=== PATIENT | female | born 1970 | race Caucasian/White ===

== ENCOUNTER 2024-11-09 20:03 | Emergency (ER) | payer OTHER, SELFPAY ==
[2024-11-09] VITALS (13 sets, daily range): BP systolic 100–134; BP diastolic 54–109; BMI 24.9
[2024-11-09] MEDS: DECADRON 20 MG IV (20:21)
[2024-11-09] MEDS: PEPCID 20 MG IV (20:25)
[2024-11-09] MEDS: NSS 1000 IV (22:15)
--- NOTE | 2024-11-09 23:15 | ED.GENMED ---
History of Present Illness
General
Chief Complaint: Allergic Reaction
Source: patient and spouse
Exam Limitations: none
Time Seen by Provider: 11/09/24 20:10
History of Present Illness
History of Present Illness:
54-year-old female who presents after she was walking outside with her and felt like she was being stung. She then became red all over and itchy. She went home to get a shower and had a near syncopal event. EMS found her to be hypotensive
and red. They gave subcu epinephrine and 50 of Benadryl. Patient on my assessment feels shaky and skin feels tingling. states about an hour and a half prior she did not trip but she eats out a lot. She denies any other new exposures.
She is not sure if she was stung by anything in particular. states that they were walking and somebody was mowing the lawn and he sort of walked through a cloud of dust/dirt/pollen. No chest pain. No tongue swelling. No lip swelling.
Patient did feel like she could not breathe at home
Past History
Past History
ED Past Medical History: None
ED Past Surgical History:
Phy Exam
Physical Exam
Physical Exam:
CONSTITUTIONAL Patient alert and oriented to person, place and time. Well-appearing. Vital signs reviewed.
HEAD atraumatic, normocephalic.
EYES eyelids normal to inspection, Extraocular muscles intact, Conjunctiva normal, Sclera normal.
ENT tongue normal, oropharynx normal, lips normal. No stridor
NECK normal range of motion, Trachea midline, no jugular venous distention.
RESPIRATORY CHEST No respiratory distress noted, Chest expansion equal, Bilateral breath sounds clear.
CARDIOVASCULAR regular rate and rhythm, Heart sounds normal.
ABDOMEN abdomen nontender, Bowel sounds normal. No distention.
BACK normal inspection, no obvious deformities
UPPER EXTREMITY range of motion normal, Motor strength normal, no cyanosis, no edema.
LOWER EXTREMITY range of motion normal, Motor strength normal, no cyanosis, no edema.
NEURO Speech normal, No focal motor deficits, Neri coma scale 15, Memory normal, Cranial Nerves intact to screening exam.
SKIN diffuse redness to the skin across the whole body with hives noted on her extremities
Course
Orders/Labs/Results
Orders:
Orders
11/09/24 20:08
Dexamethasone Sod Phosphate [Decadron] 20 mg .ROUTE .STK-MED ONE
11/09/24 20:15
Dexamethasone Sod Phosphate [Decadron] 20 mg IV NOW STA
Famotidine [Pepcid] 20 mg IV NOW STA
11/09/24 22:15
0.9% Sodium Chloride 1000 ml [Nss] 1,000 ml IV BOLUS
Vital Signs
Initial and Last Documented VS:
Initial Vital Signs
Pulse Ox
100
11/09/24 20:08
Last Documented Vital Signs
Temp Pulse Resp BP Pulse Ox
97.6 F 80 16 100/66 98
11/09/24 20:12 11/09/24 23:00 11/09/24 22:45 11/09/24 23:00 11/09/24 23:00
MDM/Problems Addressed
MDM/Problems Addressed:
Acute anaphylaxis
*Pulse Oximetry
Patient hypoxic: no
*Critical Care Note
Total Time (30-74mins, 75-104mins- exclusive of procedures): 30 minutes
Data Reviewed
Source: patient and spouse
Patient Management
Escalation/DeEscalation of care consider admission/obs:
Patient much improved after steroids, Benadryl, epinephrine. Blood pressure much improved. Given IV fluids. Unclear if she was stung or this was related to exposure. Will provide epinephrine for emergent use.
ED Attending Note
-
Portions of this chart may have been created with voice recognition software.� Occasional wrong word or��sound alike� substitutions may have occurred due to the inherent limitations of voice recognition software.
Discharge Plan
Departure
Patient Disposition: Home (Routine Discharge)
Date of Disposition: 11/09/24
Time of Disposition: 23:23
Patient with high blood pressure during this ER visit?: No
Discharge Problem:
Acute severe allergic reaction
Instructions: Anaphylaxis, Hives (DC)
Prescriptions:
New
epinephrine [EpiPen 2-Weston] 0.3 mg/0.3 mL auto-injector
0.3 mg IM ONCE PRN (Reason: anaphylaxis) Qty: 2 0RF
Referrals:
NONE,* [Family Provider] -
Activity Restrictions/Additional Instructions:
Please see your doctor in the next 3 to 5 days for follow-up and reevaluation as further allergy testing may be necessary. Return immediately for lip swelling, breathing, DiEnna's, passing out or any other concerns.
Interventions
Interventions:
*Risk Screen - Suicide Last Done: 11/09/24 20:28
*General Assessment Last Done: 11/09/24 20:28
*Neglect/Abuse Screening Last Done: 11/09/24 20:28
*ED- Fall Risk Assessment Last Done: 11/09/24 20:28
*ED COVID-19 Vaccine History Last Done: 11/09/24 20:28
ED- Cardiac Assessment Last Done: 11/09/24 20:32
ED- Pulmonary Assessment Last Done: 11/09/24 20:32
ED-Skin Assessment Last Done: 11/09/24 20:32
Discharge Date and Time
Print Language: PERSIAN
== END 2024-11-09 23:39 | disposition home or self-care (01) ==
LOC: EMR 20:03
PROVIDERS: EMERGENCY PHYSICIAN Emergency Medicine
DX: T78.40XA Allergy, unspecified, initial encounter (principal); Y92.9 Unspecified place or not applicable
CPT/HCPCS: 99282; 96374; 96375